=== PATIENT | female | born 1940 | race Caucasian/White ===

== ENCOUNTER → 2016-04-30 | Outpatient (CLI) | payer BC ==
[~2016-04-30] MED LIST: AMIT25TA19 PO; ASPCH81X PO; DIPH-437 PO; DOCU1TAB6 PO; MAGN400T5 PO; MULT-506 PO; MULT-663 PO; PSYL58.69 PO
== END | disposition home or self-care (01) ==
LOC: C.RDSM 13:44
PROVIDERS: ATTEND Physical Medicine & Rehabilitation Sports Medicine
DX: M25.551 Pain in right hip (principal); M25.552 Pain in left hip

== ENCOUNTER → 2016-05-18 | Outpatient (CLI) | payer BC ==
[2016-05-18 11:18] LABS: BLOOD UREA NITROGEN 18 mg/dl (7-18); CARBON DIOXIDE 31 mmol/L (21-32); CHLORIDE 105 mmol/L (98-107); GLUCOSE 89 mg/dl (70-99); POTASSIUM 4.4 mmol/L (3.5-5.1); SODIUM 143 mmol/L (136-145)
[2016-05-18 11:28] LABS: ALB/GLOB RATIO 1.1 (0.9-2); ALKALINE PHOSPHATASE 90 U/L (45-117); ALT/SGPT 33 U/L (12-78); AST/SGOT 26 U/L (15-37); BUN/CREATININE RATIO 23.2 (10-20); CHOLESTEROL 234 mg/dl (0-200); CHOLESTEROL/HDL RATIO 2.6; CREATININE 0.78 mg/dl (0.60-1.20); HDL CHOLESTEROL 90 mg/dl; LDL CHOLESTEROL CALCULATED 124 mg/dl; TRIGLYCERIDES 101 mg/dl (0-150); VERY LOW DENSITY LIPOPROT CALC 20 mg/dl
--- NOTE | 2016-05-22 10:51 | CODING QUERY MEDICAL NECESSITY ---
SUPPORTING DIAGNOSIS NEEDED A supporting diagnosis is required for the test/procedure performed on this patient in order for us to be reimbursed by the patient's insurance. Please provide a supporting diagnosis for the following test/procedure listed below next to the test name along with your signature. *If there is no additional diagnosis for this patient that would support the following test/procedure please document that below next to the test/procedure. Test(s)/Procedure(s) that require a supporting diagnosis: * VITAMIN D 25-HYDROXY DIAGNOSIS: * DOS: 05/18/16 Provider Signature: Date: Thank you Vivien Gerardo Health Information Management Once completed, please kindly fax back to [phone] For questions please call [phone]
== END | disposition home or self-care (01) ==
LOC: C.LABBC 07:34
PROVIDERS: ATTEND Family Medicine
DX: R03.0 Elevated blood-pressure reading, without diagnosis of hypertension (principal); E78.5 Hyperlipidemia, unspecified; M85.80 Other specified disorders of bone density and structure, unspecified site

== ENCOUNTER → 2016-10-03 | Outpatient (CLI) | payer BC ==
--- NOTE | 2016-10-03 11:48 | DIAGNOSTIC IMAGING REPORT ---
LEFT KNEE RADIOGRAPHS WITH COMPARISON STANDING AP RADIOGRAPHS OF THE RIGHT KNEE CLINICAL HISTORY: Left knee pain and tightness. COMPARISON: None FINDINGS: Comparison standing AP radiograph the right knee demonstrates no significant abnormality. Alignment of the left knee is anatomic. No fracture or joint effusion is identified. Joint spaces are preserved. A few tiny calcific densities within the subcutaneous tissues superior to the patella are of no significance. IMPRESSION: No significant abnormality of the left knee. Electronically signed by: Denzel Sorto M.D. 10/03/2016 11:46 AM Dictated Date/Time: 10/03/2016 11:45 AM
== END | disposition home or self-care (01) ==
LOC: C.RDSM 11:11
PROVIDERS: ATTEND Physician Assistant
DX: M25.562 Pain in left knee (principal)

== ENCOUNTER → 2017-05-22 | Outpatient (CLI) | payer BC ==
[2017-05-22 11:17] LABS: BLOOD UREA NITROGEN 18 mg/dl (7-18); CALCIUM 9.2 mg/dl (8.5-10.1); CARBON DIOXIDE 32 mmol/L (21-32); CHOLESTEROL 207 mg/dl (0-200); CREATININE 0.81 mg/dl (0.60-1.20); GLUCOSE 90 mg/dl (70-99); POTASSIUM 4.2 mmol/L (3.5-5.1); SODIUM 139 mmol/L (136-145)
[2017-05-22 11:23] LABS: LDL CHOLESTEROL CALCULATED 117 mg/dl
== END ==
LOC: C.LABBC 07:21
PROVIDERS: ATTEND Family Medicine
DX: E78.5 Hyperlipidemia, unspecified (principal)

== ENCOUNTER → 2017-07-04 | Outpatient (CLI) | payer BC | END | disposition home or self-care (01) | LOC: C.MAMM 11:25 | PROVIDERS: ATTEND Family Medicine | DX: M85.851 Other specified disorders of bone density and structure, right thigh (principal) ==

== ENCOUNTER → 2017-10-24 | Outpatient (CLI) | payer BC ==
[~2017-10-24] MED LIST changes: -AMIT25TA19 PO; +AMT25 PO; -DIPH-437 PO; +PSYL58.611 PO; -PSYL58.69 PO
--- NOTE | 2017-10-24 13:44 | DIAGNOSTIC IMAGING REPORT ---
L WRIST MIN 3 VIEWS ROUTINE CLINICAL HISTORY: LEFT WRIST FX COMPARISON STUDY: Left wrist 10/06/2017. FINDINGS: Overlying cast material obscures fine bony detail. There is again noted a slightly impacted and comminuted fractures at distal left radius. This appears to demonstrate slight increased sclerosis suggestive of healing. Dorsal displacement of the fracture fragments appears to have progressed compared to the prior study. Diffuse soft tissue swelling. IMPRESSION: Overlying cast material obscures fine bony detail. There appears to be mild healing within the distal radius fracture. There is mild dorsal displacement of the fracture fragments which has progressed compared to the prior study. Electronically signed by: Kam Sarkar M.D. 10/24/2017 1:42 PM Dictated Date/Time: 10/24/2017 1:40 PM
== END | disposition home or self-care (01) ==
LOC: C.RDSM 12:55
PROVIDERS: ATTEND Physician Assistant
DX: S52.502D Unspecified fracture of the lower end of left radius, subsequent encounter for closed fracture with routine healing (principal); X58.XXXD Exposure to other specified factors, subsequent encounter

== ENCOUNTER → 2017-11-07 | Outpatient (CLI) | payer BC ==
--- NOTE | 2017-11-07 13:50 | DIAGNOSTIC IMAGING REPORT ---
LEFT WRIST 3 VIEWS HISTORY: LEFT WRIST PAIN COMPARISON: None. FINDINGS: Diffuse soft tissue swelling within the left wrist. Comminuted mildly impacted distal left radius fracture is again noted. Some of the fragments demonstrate mild dorsal displacement. This remains unchanged. There is progressive sclerosis and a small amount of callus formation at the fracture consistent with healing. No dislocation. IMPRESSION: Progressive healing within the distal left radius fracture. The alignment remains unchanged. Electronically signed by: Kam Sarkar M.D. 11/07/2017 1:49 PM Dictated Date/Time: 11/07/2017 1:47 PM
== END | disposition home or self-care (01) ==
LOC: C.RDSM 08:00
PROVIDERS: ATTEND Physician Assistant
DX: M25.532 Pain in left wrist (principal)

== ENCOUNTER → 2017-11-28 | Outpatient (CLI) | payer BC ==
--- NOTE | 2017-11-28 15:32 | DIAGNOSTIC IMAGING REPORT ---
LEFT WRIST 3 VIEWS CLINICAL HISTORY: Healing fracture. FINDINGS: 3 views of the left wrist are compared to study dated 11/07/2017. The skeletal structures are osteopenic. There is a healing impacted fracture of the distal radial metaphysis. There is an increasing band of sclerosis along the fracture margin as compared to previous. Small posteriorly distracted fragments are again noted. No new fracture is identified. Mild osteoarthritic change is seen at the first carpometacarpal joint. Mild soft tissue swelling around the wrist persists. IMPRESSION: Continued healing of a distal radial metaphyseal fracture as above. Alignment is unchanged. Electronically signed by: Foster Cade M.D. 11/28/2017 3:31 PM Dictated Date/Time: 11/28/2017 3:29 PM
== END | disposition home or self-care (01) ==
LOC: C.RDSM 13:34
PROVIDERS: ATTEND Physician Assistant
DX: S62.102D Fracture of unspecified carpal bone, left wrist, subsequent encounter for fracture with routine healing (principal); X58.XXXD Exposure to other specified factors, subsequent encounter

== ENCOUNTER 2023-07-06 12:41 | Inpatient (IN) ==
[2023-07-06] MEDS: SODIUM CHLORIDE 0.9% 500 ML IV ONE ×3 (13:12→16:47)
--- NOTE | 2023-07-06 13:18 | Emergency Department Note ---
Impression & Plan Colitis, Constipation, Acute dehydration, Tachycardia, Leukocytosis, Hypertension ED Provider Note NAME: ISABELLE HUNTER AGE: 83 SEX: F : 1940 ARRIVES VIA: Walk-In INFORMANT: [Patient] ED PROVIDER(S): [Foster Dyson MD] CHIEF COMPLAINT: DrDeangelo Referred HISTORY OF PRESENT ILLNESS: The patient is an 83-year-old female who had some vomiting and nausea last weekend, 6 days ago. This was short-lived. She has not had a bowel movement since. Yesterday, she tried using a suppository but it really did not have any result. She was concerned because she has not had a bowel movement in almost a week, she went to urgent care, they referred her to the ER with concerns for obstruction. The patient feels dehydrated. No abdominal pain, no rectal pressure, no urinary complaints. There has been no fever, cough or congestion. She does have a history of constipation and usually, oral meds work well, she thinks things have been thrown off by her vomiting last weekend. PMHx/PSHx/Social Hx: See Below PHYSICAL EXAM: GENERAL: Patient is in no acute distress. HEENT: No acute trauma, normocephalic atraumatic, mucous membranes dry, no nasal congestion. NECK: No stridor, no adenopathy, no meningismus, trachea is midline. LUNGS: Clear to auscultation bilaterally, no wheeze, no rhonchi, breath sounds equal. HEART: Tachycardic, regular rhythm, no murmurs. ABDOMEN: Soft, nontender, no peritonitis. No significant abdominal distention, no pain with palpation of the abdomen. EXTREMITIES: No cyanosis, full range of motion of all the joints without pain or difficulty. NEUROLOGIC: Oriented x 3, no acute motor or sensory deficits, no focal weakness. SKIN: No jaundice, no diaphoresis. DIFFERENTIAL DIAGNOSIS: Constipation, dehydration, electrolyte imbalance, bowel obstruction, UTI, among others. EMERGENCY DEPARTMENT PROCEDURES: MEDICAL DECISION MAKING: There is a mild leukocytosis, this certainly could be consistent with infection. There was a normal hemoglobin and platelet count. Potassium somewhat low at 3.2. No renal failure. No concerning liver enzyme elevation. The patient did not have any evidence for pancreatitis. Urinalysis did not show findings of infection. Abdominal and pelvis CT shows some colitis secondary to significant constipation. No abscess. There was no bowel obstruction. On exam, the patient was tachycardic and hypertensive. She was dehydrated. There was no peritonitis or fever. Patient received 1.5 L of IV saline. She was given IV Zofran, IV ceftriaxone. The patient did receive a soapsuds enema, she had no relief with the enema. A milk and molasses enema was then ordered. I believe the patient requires a hospital stay. She will require a bowel cleanout here in the hospital. Findings today are concerning for the start of a colitis from her significant constipation. A talked to the patient, I spoke with case management, the on-call hospitalist was consulted. With regard to the hypertension, she appears currently asymptomatic. The blood pressure can be followed. I suspect the tachycardia will improve with further hydration. Prior/Outside records/notes reviewed: None. Imaging/x-ray results per my interpretation: Chronic Medical/Social conditions affecting care: Advanced age Care/Management discussed with: Case management, the on-call hospitalist. Level of care consideration(s): After review of the information above and other included data: --I believe the patient requires escalation of care to admission DISPOSITION: Admission Past Med/Surg History Medical History Arthritis of right sacroiliac joint Spinal stenosis Diverticular disease HTN (hypertension) Osteoarthritis Sciatica Surgical History History of total right hip replacement History of surgery History of carpal tunnel surgery of left wrist History of trigger finger History of total left hip arthroplasty History of colonoscopy with polypectomy Family History Mother Dementia Father Cardiac disorder Denies family history of Ovarian cancer Prostate cancer Myocardial infarction Breast cancer Colorectal cancer Social History Smoking Status: Never smoker Second Hand Exposure: No; Do You Dip or Chew Tobacco: No; Hx Alcohol Use: Yes Alcohol type: hard liquor Alcohol Intake Frequency: 2-3 x/Week Hx Substance Use: No Preferred Language: Estonian Communication Ability: Effective Visual Impairment: No Limitations Hearing Ability: Normal Wired Sweatband Cutter Required: No Beliefs That Will Affect Care: None and Cheondoism Cheondoism Beliefs: EPISCOPALIAN marital status: / Current Living Situation: Alone current occupational status: retired How many Children do You have: 2 Feels Safe at Home: Yes Childhood Exposure to Second-Hand Smoke: No Diet: regular caffeine: Yes during the past year weight has: remained stable Dental Care, Regularly: Yes Physical Activity Frequency: 3-4 Times per Week Seatbelt Use: always Sunscreen Use: Yes Do you think of yourself as: straight/heterosexual Assistive Devices: Glasses Allergies Allergies Allergy/AdvReac Type Severity Reaction Status Date / Time No Known Allergies Allergy Verified 03/08/23 13:19 Home Meds Home Medications Medication Instructions Recorded Confirmed amoxicillin 500 mg capsule 2,000 mg PO UD PRN PRE DENTAL 03/19/18 07/06/23 magnesium oxide 800 mg PO HS 03/19/18 07/06/23 multivitamin (Multiple Vitamins 1 tab PO HS 03/19/18 07/06/23 tablet) psyllium husk 3.4 gram/5.4 gram 2 tsp PO HS 03/19/18 07/06/23 oral powder (Metamucil) docusate sodium 100 mg capsule 300 mg PO HS 01/07/19 07/06/23 (Colace) lisinopril 5 mg tablet 5 mg PO QAM 07/06/23 07/06/23 Previous Rx's Medication Instructions Recorded amitriptyline 10 mg tablet 10 mg PO HS lumbar canal stenosis 05/02/23 #90 tabs valacyclovir 1 gram tablet 2,000 mg (2 x 1 gram) PO UD PRN 07/05/23 Cold Sores #20 tabs Results & Data (ED) Vital Signs Vital Signs - 24 hr 07/06/23 12:41 07/06/23 12:45 Temperature 36.3 C L Temperature Source Temporal Artery Scan Pulse Rate 113 H Respiratory Rate 20 Respiratory Effort / Characteristics Non-Labored Respiratory Depth Normal Respiratory Pattern Regular Blood Pressure 176/101 H Blood Pressure Mean 126 Pulse Oximetry 97 Oxygen Delivery Method Room Air Sepsis Recent Fever Within 48 Hours No Sepsis New/Unexplained Change in Mental Status N/A Sepsis Action Taken by Nursing No Action Required Home Medications Current Medication List: was personally reviewed by me Laboratory Data Attestation: I reviewed the patient's lab results. 07/06/23 13:05 07/06/23 13:05 Lab Results 07/06/23 07/06/23 Range/Units 13:05 13:06 WBC 11.51 H (4.8-10.8) K/ul RBC 4.27 (4.20-5.40) M/uL Hgb 12.6 (12.0-16.0) g/dl Hct 38.6 (37.0-47.0) % MCV 90.4 (80.0-100.0) fL MCH 29.5 (25.0-34.0) pg MCHC 32.6 (32.0-36.0) g/dL RDW Std Deviation 45.3 (36.4-46.3) fL RDW Coeff of Porfirio 13.6 (11.5-14.5) % Plt Count 333 (130-400) K/uL MPV 9.5 (9.4-12.4) fL Immature Gran % (Auto) 0.4 % Neut % (Auto) 66.6 % Lymph % (Auto) 22.5 % [place] % (Auto) 10.1 % Eos % (Auto) 0.1 % Baso % (Auto) 0.3 % Neut # (Auto) 7.67 H (1.40-6.50) K/uL Lymph # (Auto) 2.59 (1.20-3.40) K/uL [place] # (Auto) 1.16 H (0.11-0.59) K/uL Eos # (Auto) 0.01 (0.00-0.50) K/uL Baso # (Auto) 0.03 (0.00-0.20) K/uL Immature Gran # (Auto) 0.05 (0.01-0.20) K/uL Sodium 138 (136-145) mmol/L Potassium 3.2 L (3.5-5.1) mmol/L Chloride 102 (98-107) mmol/L Carbon Dioxide 29 (21-32) mmol/L Anion Gap 7 (3-11) BUN 18 (6-23) mg/dl Creatinine 0.91 (0.6-1.2) mg/dl Est Cr Clr Drug Dosing 45.0 ml/min Est GFR ( Amer) 68.1 ml/min Est GFR (Non-Af Amer) 58.8 ml/min BUN/Creatinine Ratio 19.8 (10-20) Glucose 111 H (70-99(Fasting)) mg/dl Calcium 9.2 (8.6-10.3) mg/dl Magnesium 2.0 (1.7-2.4) mg/dl Total Bilirubin 0.6 (0.2-1.0) mg/dl AST 30 (13-39) U/L ALT 29 (7-52) U/L Alkaline Phosphatase 80 (34-104) U/L Total Protein 7.5 (6.0-8.3) gm/dl Albumin 4.1 (3.4-5.0) gm/dl Globulin 3.4 (2.5-4.0) gm/dl Albumin/Globulin Ratio 1.2 (0.9-2) Lipase 46 (11-82) U/L Urine Color Dark Yellow Urine Appearance Clear (Clear) Urine pH 5.5 (4.5-7.5) Ur Specific [place] 1.012 (1.000-1.030) Urine Protein Trace H (Negative) Urine Glucose (UA) Negative (Negative) Urine Ketones Negative (Negative) Urine Blood Negative (Negative) Urine Nitrite Negative (Negative) Urine Bilirubin Negative (Negative) Urine Urobilinogen Negative (Negative) Ur Leukocyte Esterase 1+ H (Negative) Urine WBC (Auto) 5-10 H (0-5) /hpf Urine RBC (Auto) 0-4 (0-4) /hpf U Hyaline Cast (Auto) 1-5 (0-5) /lpf U Epithel Cells (Auto) 10-20 H (0-5) /lpf Urine Bacteria (Auto) Negative (Negative) Administered Medications Discontinued Medications Sodium Chloride (Nss) 500 mls @ 999 mls/hr IV .Q31M ONE Stop: 07/06/23 13:31 Last Infusion: 07/06/23 13:49 Dose: Infused Documented By: Admin: 07/06/23 13:12 Dose: 999 mls/hr Documented By: MIKE Sodium Chloride (Nss) 500 mls @ 999 mls/hr IV .Q31M ONE Stop: 07/06/23 13:42 Last Infusion: 07/06/23 14:46 Dose: Infused Documented By: Admin: 07/06/23 13:30 Dose: 999 mls/hr Documented By: SHRUTHI Ioversol (Optiray 320 100ml) 89 ml IV ONCE ONE Stop: 07/06/23 14:54 Last Admin: 07/06/23 14:54 Dose: 89 ml Documented By: BOLIVAR Ondansetron HCl (Ondansetron Inj 2 Mg/Ml 2 Ml Vial) 4 mg IV NOW STA Stop: 07/06/23 13:02 Last Admin: 07/06/23 13:29 Dose: 4 mg Documented By: OAC Imaging Data Radiologist's Impression: Abdomen/Pelvis CT 07/06/23 13:01 CT SCAN OF THE ABDOMEN AND PELVIS WITH IV CONTRAST CLINICAL HISTORY: Generalized abdominal pain. COMPARISON STUDY: Pelvic radiograph dated 01/25/2022. TECHNIQUE: Following the IV administration of 89 cc of Optiray 320, CT scan of the abdomen and pelvis is performed from the lung bases to the proximal femora. Images are reviewed in the axial, sagittal, and coronal planes. IV contrast was administered without complication. A dose lowering technique was utilized adhering to the principles of ALARA. CT DOSE: 1160.81 mGy.cm FINDINGS: Lung bases: The heart is normal in size and without pericardial effusion. The coronary arteries are densely calcified. The lung bases are clear. Liver: The contrast-enhanced liver is normal in size, contour, and attenuation. There is no intrahepatic biliary ductal dilatation. The hepatic veins and portal veins are patent. Gallbladder: Unremarkable. Spleen: Normal in size and attenuation. Pancreas: Unremarkable. Adrenal glands: Unremarkable. Kidneys: The contrast enhanced kidneys are normal in size and without hydronephrosis. The kidneys enhance symmetrically. Abdominal vasculature: The abdominal aorta is normal in course and caliber. Bowel: There is rectosigmoid fecal retention. The rectal wall is mildly thickened and there is perirectal inflammation. There is also inflammatory change identified in the perianal soft tissues. No fluid collection is seen. There are scattered colonic diverticula without CT evidence of acute diverticulitis. No bowel obstruction is seen. [id number] fecal retention is noted throughout the colon. The appendix is well-visualized and normal. There is mild subcutaneous soft tissue infiltration along the gluteal crease. Peritoneum: There is no intraperitoneal free air or abdominal ascites. There is a fat-containing umbilical hernia. Lymphadenopathy: None. Pelvic viscera: Evaluation of the pelvis is degraded by streak artifact from bilateral hip arthroplasties. The bladder is distended but otherwise normal in appearance. The uterus and adnexa are normal as visualized. Skeletal structures: The skeletal structures are osteopenic. There is moderate lumbosacral spondylosis. No lytic or blastic lesions are seen. Bilateral hip arthroplasties are in place. IMPRESSION: 1. There is evidence of a nonspecific proctitis, which may be stercoral. Correlate clinically. 2. There is also inflammatory change of the perianal soft tissues, as well as along the inferior aspect of the gluteal crease. No fluid collection is seen to suggest abscess. This is likely part of the same process. Correlate with physical examination findings. 3. No bowel obstruction is seen. 4. Additional findings as above. ACT 112: Negative or not required by law. Electronically signed by: Foster Cade M.D. 07/06/2023 3:23 PM Discharge Plan Visit Data Chief Complaint: Abdominal Pain Stated Complaint: REF BY [facility] - ABDOMINAL PAIN ED Provider: Foster Dyson Discharge Problem: Colitis, Constipation, Acute dehydration, Tachycardia, Leukocytosis, Hypertension Patient Disposition: Admitted As Inpatient Condition: Fair Forms Stand Alone Forms: [facility] [employer] Prescriptions Prescriptions: No Action amitriptyline 10 mg tablet 10 mg PO HS Qty: 90 1RF valacyclovir 1 gram tablet 2,000 mg PO UD PRN (Reason: Cold Sores) Qty: 20 3RF Rx Instructions: 1 day only; take at first s/s of cold sore docusate sodium [Colace] 100 mg capsule 300 mg PO HS multivitamin [Multiple Vitamins] Tablet 1 tab PO HS amoxicillin 500 mg Capsule 2,000 mg PO UD PRN (Reason: PRE DENTAL) magnesium oxide 250 mg magnesium Tablet 800 mg PO HS Metamucil 3.4 gram/5.4 gram Powder 2 tsp PO HS lisinopril 5 mg tablet 5 mg PO QAM Rx Instructions: TAKE 1 TABLET BY MOUTH DAILY IN THE MORNING Referrals Referrals: Nichole Antony MD [Primary Care Provider] - Discharge Problem: Constipation Qualifiers: Constipation type: unspecified constipation type Qualified Code(s): K59.00 - Constipation, unspecified Leukocytosis Qualifiers: Leukocytosis type: unspecified Qualified Code(s): D72.829 - Elevated white blood cell count, unspecified Hypertension Qualifiers: Hypertension type: unspecified Qualified Code(s): I10 - Essential (primary) hypertension
[2023-07-06 13:28] LABS: Appearance Urine Clear (Clear); Bacteria Urine Automated Negative (Negative); Bilirubin Urine Negative (Negative); Blood Urine Negative (Negative); Color Urine Dark Yellow; Glucose Urine UA Negative (Negative); Ketones Urine Negative (Negative); Leukocyte Esterase Urine 1+ (Negative); Nitrite Urine Negative (Negative); Protein Urine Trace (Negative); RBC Urine Automated 0-4 /hpf (0-4); Specific Gravity Urine 1.012 (1.000-1.030); Urobilinogen Urine Negative (Negative); pH Urine 5.5 (4.5-7.5)
[2023-07-06] MEDS: ONDANSETRON INJ 2 MG/ML 2 ML VIAL IV STA (13:29)
[2023-07-06 13:46] LABS: Basophils # (auto) 0.03 K/uL (0.00-0.20); Basophils % (auto) 0.3 %; Eosinophils # (auto) 0.01 K/uL (0.00-0.50); Eosinophils % (auto) 0.1 %; Hematocrit (blood only) 38.6 % (37.0-47.0); Hemoglobin 12.6 g/dl (12.0-16.0); Immature Granulocytes # (auto) 0.05 K/uL (0.01-0.20); Immature Granulocytes % (auto) 0.4 %; Lymphocytes # (auto) 2.59 K/uL (1.20-3.40); Lymphocytes % (auto) 22.5 %; Mean Corpuscular Hemoglobin 29.5 pg (25.0-34.0); Mean Corpuscular Hgb Conc 32.6 g/dL (32.0-36.0); Mean Corpuscular Volume 90.4 fL (80.0-100.0); Mean Platelet Volume 9.5 fL (9.4-12.4); Monocytes # (auto) 1.16 K/uL (0.11-0.59); Monocytes % (auto) 10.1 %; Neutrophils # (auto) 7.67 K/uL (1.40-6.50); Neutrophils % (auto) 66.6 %; Platelet Count 333 K/uL (130-400); RDW Coefficient of Variation 13.6 % (11.5-14.5); RDW Standard Deviation 45.3 fL (36.4-46.3); Red Blood Count 4.27 M/uL (4.20-5.40); White Blood Count 11.51 K/ul (4.8-10.8)
[2023-07-06 14:01] LABS: Albumin Globulin Ratio 1.2 (0.9-2); Albumin Level 4.1 gm/dl (3.4-5.0); BUN Creatinine Ratio 19.8 (10-20); Bilirubin,Total 0.6 mg/dl (0.2-1.0); Calcium 9.2 mg/dl (8.6-10.3); Est GFR (African American) 68.1 ml/min; Est GFR (Non-African American) 58.8 ml/min; Globulin 3.4 gm/dl (2.5-4.0); Potassium 3.2 mmol/L (3.5-5.1); Total Protein 7.5 gm/dl (6.0-8.3)
[2023-07-06] MEDS: OPTIRAY 320 100ml IV ONE (14:54)
--- NOTE | 2023-07-06 15:25 | CT Scan Report ---
CT SCAN OF THE ABDOMEN AND PELVIS WITH IV CONTRAST CLINICAL HISTORY: Generalized abdominal pain. COMPARISON STUDY: Pelvic radiograph dated 01/25/2022. TECHNIQUE: Following the IV administration of 89 cc of Optiray 320, CT scan of the abdomen and pelvi s is performed from the lung bases to the proximal femora. Images are reviewed in the axial, sagittal , and coronal planes. IV contrast was administered without complication. A dose lowering technique wa s utilized adhering to the principles of ALARA. CT DOSE: 1160.81 mGy.cm FINDINGS: Lung bases: The heart is normal in size and without pericardial effusion. The coronary arteries are d ensely calcified. The lung bases are clear. Liver: The contrast-enhanced liver is normal in size, contour, and attenuation. There is no intrahepa tic biliary ductal dilatation. The hepatic veins and portal veins are patent. Gallbladder: Unremarkable. Spleen: Normal in size and attenuation. Pancreas: Unremarkable. Adrenal glands: Unremarkable. Kidneys: The contrast enhanced kidneys are normal in size and without hydronephrosis. The kidneys enh ance symmetrically. Abdominal vasculature: The abdominal aorta is normal in course and caliber. Bowel: There is rectosigmoid fecal retention. The rectal wall is mildly thickened and there is perire ctal inflammation. There is also inflammatory change identified in the perianal soft tissues. No flui d collection is seen. There are scattered colonic diverticula without CT evidence of acute diverticul itis. No bowel obstruction is seen. [id number] fecal retention is noted throughout the colon. T he appendix is well-visualized and normal. There is mild subcutaneous soft tissue infiltration along the gluteal crease. Peritoneum: There is no intraperitoneal free air or abdominal ascites. There is a fat-containing umbi lical hernia. Lymphadenopathy: None. Pelvic viscera: Evaluation of the pelvis is degraded by streak artifact from bilateral hip arthroplas ties. The bladder is distended but otherwise normal in appearance. The uterus and adnexa are normal a s visualized. Skeletal structures: The skeletal structures are osteopenic. There is moderate lumbosacral spondylosi s. No lytic or blastic lesions are seen. Bilateral hip arthroplasties are in place. IMPRESSION: 1. There is evidence of a nonspecific proctitis, which may be stercoral. Correlate clinically. 2. There is also inflammatory change of the perianal soft tissues, as well as along the inferior aspe ct of the gluteal crease. No fluid collection is seen to suggest abscess. This is likely part of the same process. Correlate with physical examination findings. 3. No bowel obstruction is seen. 4. Additional findings as above. ACT 112: Negative or not required by law. Electronically signed by: Foster Cade M.D. 07/06/2023 3:23 PM
--- NOTE | 2023-07-06 16:37 | History & Physical Report ---
Date of Service July 06, 2023 Assessment & Plan (1) Constipation: Plan: -Admit to med/tele -Currently stable and non-toxic appearing -Presented to the ED with 5 days of constipation -Started with a GI virus at the beginning of the week causing recurrent nausea and non-bloody emesis -Has been dehydrated, attempted glycerine enema at home without relief -CT of the abd/pelvis w/IV con today shows "nonspecific proctitis, which may be stercoral." -No sign of bowel obstruction or abscess on CT -Had a soap suds enema in the ED with only a small, hard BM prior to admission -Will receive a milk of molasses enema ordered by the ED shortly -Will start GoLytley with 8 oz q10min until 2 L are consumed or the rectal effluent is clear -Will continue TID soap suds enemas until patient is having consistent, soft BM's -PRN hemorrhoidal suppositories for hemorrhoidal pain in between enemas -Continue IV hydration with maintenance LR for a total of 2 bags -PRN tylenol for pain -Will consult general surgery to follow with possible stercoral colitis on CT -BL SCD's for DVT PPX -Clear liquid diet -AM CBC, CMP, mag, PT/INR (2) Colitis: Plan: -CT of the abd/pelvis w/IV con shows signs of colitis, possibly stercoral -No signs of obstruction or abscess -S/P one dose of Ceftriaxone in the ED -Will continue ceftriaxone and add Flagyl for anaerobic coverage -Follow general surgery consult (3) Hypertension: Plan: -Stable -Continue lisinopril (4) Hypokalemia: Plan: -Noted to be 3.2 today -Likely due to poor oral intake over the past week -Will give 3 bags of 10 meq IV KCL and 40 meq PO KCL on admission -Will start maintenance LR overnight -Mag is WNL -Monitor am electrolytes (5) Urinary retention: Plan: -Patient mentioned having increased difficulty urinating over the past 12 hours -CT of the abd/pelvis shows significant bladder distention -PVR ordered on admission shows approximately 800 cc of urine -Renal function is stable, no signs of hydronephrosis on CT -Likely due to her significant constipation -Spoke with nursing staff, will start with prn straight caths for PVR of 400 cc or greater -If patient requires more than 2 straight-caths then will place Waldron catheter Plan The patient was discussed with Dr. Prado at the time of the admission History of Present Illness Chief Complaint: Constipation Primary Care Provider: Nichole Antony MD Radha Fournier is an 83 year old female with a PMH significant for HTN and chronic constipation who presented to the [facility] ED on 07/06/23 with complaints of constipation. She was noted to be hypertensive at 176/101 and tachycardic at 113 but was otherwise stable. Labs were significant for a leukocytosis of 11 with neutrophil predominance of 7, potassium of 3.2, and UA without sings of infection. CT of the abd/pelvis w/IV con was read as "1. There is evidence of a nonspecific proctitis, which may be stercoral. Correlate clinically. 2. There is also inflammatory change of the perianal soft tissues, as well as along the inferior aspect of the gluteal crease. No fluid collection is seen to suggest abscess. This is likely part of the same process. Correlate with physical examination findings. 3. No bowel obstruction is seen. 4. Additional findings as above.". Prior to admission the patient was given a dose of ceftriaxone, 1L NSS, 4 mg IV zofran, and a soap suds enema with small BM after. We were asked to admit the patient due to ongoing constipation and concern for stercoral proctitis. At the time of the exam the patient was returning to bed from the bathroom in no acute distress. She states that she started to develop flu-like symptoms including nausea, non-bloody emesis, and poor PO intake on 06/30. Because of her symptoms she had little to eat or drink over the past week and was unable to take her normal bowel regimen. She has had ongoing constipation over the past week. She tried a glycerine enema last night without a bowel movement. Denies abdominal pain, fever, chills, chest pain, cough, SOB, dysuria, hematuria, melena, LE swelling, and recent trauma. Currently, pain from her hemorrhoids is severe and keeping her from being able to comfortably have a BM at this time. Sh charlene states that she had a very small, hard, BM after having the soap suds enema. She feels as though she is having to work harder to urinate over the past 12 hours. She is a full code and would want her Son to make medical decisions if she cannot make them herself. Please refer to Dr. Prado's attestation for any changes to the treatment plan Allergies Allergy/AdvReac Type Severity Reaction Status Date / Time No Known Allergies Allergy Verified 03/08/23 13:19 Home Medications Medication Instructions Recorded Confirmed Type amoxicillin 500 mg capsule 2,000 mg PO UD PRN PRE DENTAL 03/19/18 07/06/23 History magnesium oxide 800 mg PO HS 03/19/18 07/06/23 History multivitamin (Multiple Vitamins 1 tab PO HS 03/19/18 07/06/23 History tablet) psyllium husk 3.4 gram/5.4 gram 2 tsp PO HS 03/19/18 07/06/23 History oral powder (Metamucil) docusate sodium 100 mg capsule 300 mg PO HS 01/07/19 07/06/23 History (Colace) amitriptyline 10 mg tablet 10 mg PO HS lumbar canal stenosis 05/02/23 07/06/23 Rx #90 tabs valacyclovir 1 gram tablet 2,000 mg (2 x 1 gram) PO UD PRN 07/05/23 07/06/23 Rx Cold Sores #20 tabs lisinopril 5 mg tablet 5 mg PO QAM 07/06/23 07/06/23 History Past Med/Surg History Medical History Arthritis of right sacroiliac joint Spinal stenosis Diverticular disease HTN (hypertension) Osteoarthritis Sciatica Surgical History History of total right hip replacement History of surgery History of carpal tunnel surgery of left wrist History of trigger finger History of total left hip arthroplasty History of colonoscopy with polypectomy Family History Mother Dementia Father Cardiac disorder Denies family history of Ovarian cancer Prostate cancer Myocardial infarction Breast cancer Colorectal cancer Social History Smoking Status: Never smoker Second Hand Exposure: No; Do You Dip or Chew Tobacco: No; Hx Alcohol Use: Yes Alcohol type: hard liquor Alcohol Intake Frequency: 2-3 x/Week Hx Substance Use: No Preferred Language: Persian Communication Ability: Effective Visual Impairment: No Limitations Hearing Ability: Normal Telecine Operator Required: No Beliefs That Will Affect Care: None and Lutheran Lutheran Beliefs: RELIGION marital status: / Current Living Situation: Alone current occupational status: retired How many Children do You have: 2 Feels Safe at Home: Yes Childhood Exposure to Second-Hand Smoke: No Diet: regular caffeine: Yes during the past year weight has: remained stable Dental Care, Regularly: Yes Physical Activity Frequency: 3-4 Times per Week Seatbelt Use: always Sunscreen Use: Yes Do you think of yourself as: straight/heterosexual Assistive Devices: Glasses Physical Exam Physical Exam: Physical Exam: General: In no acute distress, stated age, well-nourished, non-toxic appearing HEENT: Normocephalic, atraumatic, no scleral icterus, pupils around round, symmetrical, and reactive to light, dry mucus membranes, trachea midline, no thyromegaly Chest/Pulm: No respiratory distress, symmetrical chest expansion, clear breath sounds throughout Cardiac: RRR, no murmurs noted Abdomen: Negative for ascites and bruising, moderate abdominal distention, hypoactive bowel sounds, soft, non-tender to percussion and palpation throughout Musculoskeletal: Symmetrical and without signs of acute trauma, upper and lower extremities with full ROM, no atrophy, spasticity, or flaccidity Extremities: Radial, dorsalis pedis, and posterior tibial pulses are intact and symmetrical, no edema noted in the BL LE's Skin: Warm, dry, no rashes , lesions, or scars noted Neuro: Alert and oriented to person, place, month, year, and president, no focal defects, no tremors noted Psych: No acute distress, calm and cooperative during the exam Results & Data Results & Data Vital Signs (Past 12 Hours) Vital Signs Temp Pulse Resp BP Pulse Ox O2 Del Method 07/06/23 12:45 36.3 C L 113 H 20 176/101 H 97 07/06/23 12:41 Room Air Laboratory Results Abnormal lab results 07/06/23 07/06/23 Range/Units 13:05 13:06 WBC 11.51 H (4.8-10.8) K/ul Neut # (Auto) 7.67 H (1.40-6.50) K/uL [place] # (Auto) 1.16 H (0.11-0.59) K/uL Potassium 3.2 L (3.5-5.1) mmol/L Glucose 111 H (70-99(Fasting)) mg/dl Urine Protein Trace H (Negative) Ur Leukocyte Esterase 1+ H (Negative) Urine WBC (Auto) 5-10 H (0-5) /hpf U Epithel Cells (Auto) 10-20 H (0-5) /lpf Diagnostic Findings Abdomen/Pelvis CT 07/06/23 13:01 CT SCAN OF THE ABDOMEN AND PELVIS WITH IV CONTRAST CLINICAL HISTORY: Generalized abdominal pain. COMPARISON STUDY: Pelvic radiograph dated 01/25/2022. TECHNIQUE: Following the IV administration of 89 cc of Optiray 320, CT scan of the abdomen and pelvis is performed from the lung bases to the proximal femora. Images are reviewed in the axial, sagittal, and coronal planes. IV contrast was administered without complication. A dose lowering technique was utilized adhering to the principles of ALARA. CT DOSE: 1160.81 mGy.cm FINDINGS: Lung bases: The heart is normal in size and without pericardial effusion. The coronary arteries are densely calcified. The lung bases are clear. Liver: The contrast-enhanced liver is normal in size, contour, and attenuation. There is no intrahepatic biliary ductal dilatation. The hepatic veins and portal veins are patent. Gallbladder: Unremarkable. Spleen: Normal in size and attenuation. Pancreas: Unremarkable. Adrenal glands: Unremarkable. Kidneys: The contrast enhanced kidneys are normal in size and without hydronephrosis. The kidneys enhance symmetrically. Abdominal vasculature: The abdominal aorta is normal in course and caliber. Bowel: There is rectosigmoid fecal retention. The rectal wall is mildly thickened and there is perirectal inflammation. There is also inflammatory change identified in the perianal soft tissues. No fluid collection is seen. There are scattered colonic diverticula without CT evidence of acute diverticulitis. No bowel obstruction is seen. Nzwz-[id number]-wapldzdr fecal retention is noted throughout the colon. The appendix is well-visualized and normal. There is mild subcutaneous soft tissue infiltration along the gluteal crease. Peritoneum: There is no intraperitoneal free air or abdominal ascites. There is a fat-containing umbilical hernia. Lymphadenopathy: None. Pelvic viscera: Evaluation of the pelvis is degraded by streak artifact from bilateral hip arthroplasties. The bladder is distended but otherwise normal in appearance. The uterus and adnexa are normal as visualized. Skeletal structures: The skeletal structures are osteopenic. There is moderate lumbosacral spondylosis. No lytic or blastic lesions are seen. Bilateral hip arthroplasties are in place. IMPRESSION: 1. There is evidence of a nonspecific proctitis, which may be stercoral. Correlate clinically. 2. There is also inflammatory change of the perianal soft tissues, as well as along the inferior aspect of the gluteal crease. No fluid collection is seen to suggest abscess. This is likely part of the same process. Correlate with physical examination findings. 3. No bowel obstruction is seen. 4. Additional findings as above. ACT 112: Negative or not required by law. Electronically signed by: Foster Cade M.D. 07/06/2023 3:23 PM ECG Additional Comments: Will obtain at the time of admission Code Status & VTE Plan Code Status Full code VTE Prophylaxis Plan VTE Prophylaxis will be ordered: Yes Supervising Physician Co-Signing Physician Notes Patient seen and examined, chart reviewed, case discussed with Pro Hatch PA-C and I agree with the assessment and plan as above except as otherwise noted Labs and images reviewed Mary is a 83-year-old female with past medical history of hypertension, chronic constipation who developed poor p.o. intake, nausea, nonbloody emesis over the past 5 days and has not been able to keep down on her normal regimen, food, or drink. At time of admitting assessment has no abdominal pain, fever, chills, or sweats. Minimal BM small and very hard and has had difficulty urinating. At bedside she has no abdominal discomfort, abdomen is softly distended with diminished but intact bowel sounds. Ankle dorsiflexion/plantarflexion and sensation is intact bilaterally, no lower extremity weakness or saddle anesthesia is present. CT w evidence of nonspecific proctitis? stercoral, inflammatory change of the perianal soft tissue without abscess, and she does have a new leukocytosis on admission. Antibiotic coverage was started in the ER with Rocephin, agree with addition of Flagyl for GI coverage. Potassium 3.2, repleted. Magnesium is normal. Enema and GoLytely prep ordered. Agree with assessment and management as above PG Care Time/CCT Total # of Minutes Spent Total Time Spent with Patient: Total time spent is greater than 50% in coordination of care (as documented) at patient's floor/unit and/or counseling patient: Coding [place] [address] INT INP/OBS CARE MIN Patient Type Established Medical Decision Making High Complexity Diagnoses Constipation K59.00 Constipation type: unspecified constipation type Colitis K52.9 Hypertension I10 Hypertension type: unspecified Hypokalemia E87.6 Urinary retention R33.9 (1) Constipation Constipation type: unspecified constipation type Qualified Code(s): K59.00 - Constipation, unspecified (3) Hypertension Hypertension type: unspecified Qualified Code(s): I10 - Essential (primary) hypertension
[2023-07-06] MEDS: cefTRIAXone SODIUM 2,000 MG/50 ML BAG IV STA (16:47)
[2023-07-06] MEDS: ACETAMINOPHEN 1,000 MG/100 ML VIAL IV STA (17:14)
[2023-07-06] MEDS: metroNIDAZOLE 500 MG/100 ML BAG IV STA (17:26)
--- OUTSIDE RECORDS SUMMARY | 2023-07-06 18:31 | External Medical Summary | Summary of Care ---
Author Name Unknown Organization [facility] Address [address] [place] [address] Phone [phone] Care Team Providers Care Landscape Architect Name Role Phone Nichole Antony MD Primary Care Provider Reason for Visit * Reason Comments Other Encounter Details Date Type Department Care Team (Latest Contact Info) Description 07/06/2023 1:15 PM EDT Convenient Care Visit [facility] [address] [place] [address] Estiven Manuel PA-C [address] [facility] [place] [address] Constipation, unspecified constipation type*; Fecal impaction (HCC) Allergies No known active allergiesdocumented as of this encounter (statuses as of 07/06/2023) Medications Medication Sig Dispensed Refills Start Date End Date Status ASPIRIN 81 MG PO TABS daily 0 Act romario AMITRIPTYLINE HCL 10 MG PO TABS 1 tab at night 0 Active MAGNESIUM 250 MG PO TABS 1 tab twice daily 0 Active METAMUCIL 28.3 % PO POWD as needed 0 Active MULTIVITAMINS PO CAPS 1 tab daily 0 Ac tive DOCUSATE SODIUM 100 MG PO CAPS 2 tabs daily 0 Active valACYclovir (VALTREX) 1000 MG TabletIndications:Her pes simplex virus (HSV) infection Take 2 pills by mouth twice daily x 1 day only at first sign of outbreak. 4 Tab 0 04/29/2019 Active Desonide 0.05 % External CreamIndications:Derm atitis APPLY TOPICALLY TO RASH ON THE NECK TWO TIMES DAILY NEEDED FOR FLARES AND ITCHING 15 g 1 12/28/2021 Active Lisinopril 5 MG Oral Tablet (Prinivil) Take 1 Tablet by mouth in the morning. In the morning.. 0 02/20/2022 Active documented as of this encounter (statuses as of 07/06/2023) Active Problems No known active problems documented as of this encounter (statuses as of 07/06/2023) Immunizations Name Administration Dates Next Due COVID-19 mRNA, LNP-s, No Pre serve, 2-Dose Series (Moderna) 06/06/2020,05/02/2020 documented as of this encounter Social History Tobacco Use Types Packs/Day Years Used Date Smoking Tobacco: Never Smokeless Tobacco: Never Alcohol Use Standard Drinks/Week Comments Yes 0 (1 standard drink = 0.6 oz pur e alcohol) Sex and Gender Information Value Date Recorded Sex Assigned at Not on file Gender Identity Not on file Sexual Orientation Not on file Job Start Date Occupation Industry Not on file Not on file Not on file documented as of this encounter Last Filed Vital Signs Vital Sign Reading Time Taken Comments Blood Pressure 138/80 07/06/2023 12:11 PM EDT Pulse 106 07/06/2023 12:11 PM EDT Temperature 36.8 C (98.3 F) 07/06/2023 12:11 PM E DT Respiratory Rate 18 07/06/2023 12:11 PM EDT Oxygen Saturation 100% 07/06/2023 12:11 PM EDT Inhaled Oxygen Concentration - - Weight 69.4 kg (153 lb) 07/06/2023 12:11 PM EDT Height 160 cm (5' 3") 07/06/2023 12:11 PM EDT Body Mass Index 27.1 07/06/2023 12:11 PM EDT documented in this encounter Progress Notes * Estiven Manuel PA-C - 07/06/2023 12:27 PM EDT Nursing Notes: Radha Rodríguez LPN 07/06/23 1214 Signed Radha Fournier is a 83 year old female who presents to walk-in clinic today complaining of no BM's since 06/29. States on 06/30 - she vomited and was not feeling well and not eating. Took Liquid glycerin yesterday. Takes metamucil daily and took last night along with stool softeners. She states she feels lousy. Also thinks now she has hemorrhoids from trying to push out stool. No abdominal pain - her daughter wanted her to come in so she did. Pt alone in room. Subjective Radha Fournier is a 83 year old female that presents for Other She reports that she had N/V about 5-6 days ago, which resolved after a day. She has not had a BM since 6 days ago. Constipation This is a new problem. The current episode started in the past 7 days. The problem is unchanged. Stool frequency: normally goes once a day. has not had a BM since Thursday 06/29. Associated symptoms include bloating and hemorrhoids (thinks she may have developed hemorrhoids with straining). Pertinent negatives include no abdominal pain, anorexia, back pain, diarrhea, difficulty urinating (but has been urinating less than normal), fecal incontinence, fever, flatus, hematochezia, melena, nausea, rectal pain, vomiting (resolved after 06/30) or weight loss. She has tried stool softeners (gylcerine suppositories, metamucil) for the symptoms. The treatment provided no relief. She feels weak, run down. Objective BP 138/80 | Pulse 106 | Temp 36.8 C (98.3 F) (Tympanic) | Resp 18 | Ht 1.6 m (5' 3") | Wt 69.4 kg (153 lb) | SpO2 100% | BMI 27.10 kg/m | BSA 1.76 m Body mass index is 27.1 kg/m. BP Readings from Last 3 Encounters: 07/06/23 138/80 08/07/17 140/76 Wt Readings from Last 3 Encounters: 07/06/23 69.4 kg (153 lb) 08/07/17 65.8 kg (145 lb) Physical Exam Vitals and nursing note reviewed. Constitutional: General: She is not in acute distress. Appearance: She is well-developed. She is not ill-appearing, toxic-appearing or diaphoretic. HENT: Head: Normocephalic and atraumatic. Eyes: Extraocular Movements: Extraocular movements intact. Neck: Vascular: No JVD. Trachea: No tracheal deviation. Cardiovascular: Rate and Rhythm: Normal rate and regular rhythm. Pulses: Radial pulses are 2+ on the right side and 2+ on the left side. Heart sounds: Normal heart sounds. No murmur heard. No friction rub. No gallop. Pulmonary: Effort: No accessory muscle usage. Breath sounds: No decreased breath sounds, wheezing, rhonchi or rales. Chest: Chest wall: No mass, deformity, tenderness or crepitus. Abdominal: General: Bowel sounds are normal. There is distension. Palpations: Abdomen is soft. There is no hepatomegaly or splenomegaly. Tenderness: There is no abdominal tenderness. There is no guarding or rebound. Negative signs include Francois's sign, Rovsing's sign and McBurney's sign. Musculoskeletal: General: Normal range of motion. Cervical back: Normal range of motion and neck supple. Right lower leg: No tenderness. No edema. Left lower leg: No tenderness. No edema. Skin: General: Skin is warm and dry. Capillary Refill: Capillary refill takes less than 2 seconds. Nails: There is no clubbing. Neurological: General: No focal deficit present. Mental Status: She is alert and oriented to person, place, and time. Psychiatric: Mood and Affect: Mood normal. Mood is not anxious. Behavior: Behavior normal. Behavior is not agitated. Assessment and plan 1. Constipation, unspecified constipation type 2. Fecal impaction (HCC) Suspect fecal impaction vs bowel obstruction Shared decision to do GW for labs/obst Xray vs right to ER. Pt will go to Er for further work-up and management Suspect may need fluids as well. Follow up To ER now. The above was discussed and understanding was expressed. Estiven Manuel PA-C documented in this encounter Nursing Notes * Radha Rodríguez LPN - 07/06/2023 12:07 PM EDT Radha Fournier is a 83 year old female who presents to walk-in clinic today complaining of no BM's since 06/29. States on 06/30 - she vomited and was not feeling well and not eating. Took Liquid glycerin yesterday. Takes metamucil daily and took last night along with stool softeners. She states she feels lousy. Also thinks now she has hemorrhoids from trying to push out stool. No abdominal pain - her daughter wanted her to come in so she did. Pt alone in room. documented in this encounter Plan of Treatment Upcoming Encounters Date Type Department Care Team (Late st Contact Info) Description 09/27/2023 12:40 PM EDT Office Visit Dermatology [facility] [place] [address] [place] [address] Inga Tejeda PA-C [address] [facility] [place] [phone] Health Maintenance Due Date Last Done Comments DXA Scan 1940 Depression Screening 1952 DTaP,Tdap,and Td Vaccines (1 - Tdap) 02/27/1960 Zoster Vaccines (2 of 3) 03/25/2010 01/28/2010 Pneumococcal Vaccine: 65+ Years (2 of 2 - PCV) 05/27/2016 05/27/2015 COVID-19 Vaccine (3 - 2022-2 4 season) 2022 06/06/2020, 05/02/2020 Influenza Vaccine (FLU shot) (#1) 2022 GARDASIL-HPV IMMUNIZATION SERIES Aged Out No longer eligible b ased on patient's age to complete this topic Hepatitis B Aged Out No longer eligi ble based on patient's age to complete this topic MENINGOCOCCAL (MENACTRA/MENVEO) Aged Out No longer eligible b ased on patient's age to complete this topic documented as of this encounter Medical Devices Not on filedocumented as of this encounter Visit Diagnoses Diagnosis Constipation, unspecified constipation type- Primary Fecal impaction (HCC) documented in this encounter Care Teams Landscape Architect Relationship Specialty Start Date End Date Nichole Antony MD [address] [place] [address] PCP - General Family Medicine 09/25/18 documented as of this encounter
[2023-07-06] MEDS: LAVAGE SOLUTION 4000ML PO SCH (18:41)
[2023-07-06] MEDS: PLASMA-LYTE A 1,000 ML IV SCH (18:44)
[2023-07-06] MEDS: POTASSIUM CHLORIDE / WTR 10 MEQ/100 ML PLCT IV SCH (21:50)
[2023-07-06] MEDS: POTASSIUM CHLORIDE CRTAB 20 MEQ TABCR PO STA (21:50)
[2023-07-06] MEDS: AMITRIPTYLINE HCL 10 MG TAB PO SCH (21:50)
--- NOTE | 2023-07-06 22:07 | Surgery Consultation ---
Date of Consultation July 06, 2023 Assessment & Plan (1) Constipation: Patient has been admitted on the hospital service. From surgery perspective we recommend proceeding as follows: At the present time the patient has a benign abdominal exam. 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 and she has been given GoLytely as noted above which will hopefully help patient with having a bowel movement The patient has been empirically placed on Rocephin and Flagyl which can continue As noted above the patient does not have a surgical abdomen at this time and hopefully with the GoLytely that has been ordered this will help resolve her constipation The patient is currently on a clear liquid diet and I would not advance her past this until she has meaningful bowel movement Additional recommendations be forthcoming based on her clinical course as it unfolds Addendum (1:00 AM) I was called by nursing staff the patient was on bedside commode trying to have a bowel movement. Patient notes that she does not really have much in the way of abdominal pain and she is having some liquid stool when trying to have a bowel movement. I performed a rectal exam at bedside and was able to palpate a mass of semisolid stool in the patient's rectum. Unfortunately, the stool was at a distance that was out of reach to successfully manually disimpact the patient. We will attempt additional measures such as enemas to stimulate patient from below in an attempt to have her have a bowel movement. Supervising Physician Co-Signing Physician Notes This case was discussed with surgical PA. I agree with the plan. History of Present Illness Reason for Consultation: Sterile coral colitis Attending Physician: Steffen Prado MD History of Present Illness This is an 83-year-old female who notes that she has had chronic constipation for several years. The patient says that she takes stool softeners and laxatives and she has done so for several years and can usually manage her constipation in this manner. She notes that she has had a colonoscopy, most recently about 3 years ago, and she does note that she did not have any difficulty with the prep at that time. She notes that she has been having issues with worsening constipation for approximately 4 to 5 days. She notes that she has not had a normal bowel movement in approximately 4 days. Because of her ongoing constipation she presented to the emergency department. She spec ifically denies any abdominal pain. She denies any nausea or vomiting. She denies any fevers, shakes, or chills. Since arrival to the hospital patient has had labs and imaging which independent reviewed. The patient had a CT scan of the abdomen pelvis that showed patient had findings concerning for nonspecific proctitis with the potential of sterile coral colitis. There was some inflammatory changes in the perianal soft tissues in the inferior aspect of the gluteal crease however there was no fluid collection suggestive of an abscess. There is no evidence of bowel obstruction. Labs include a CBC her white blood cell count was elevated 11.5. Hemoglobin, hematocrit, platelet count were normal. Chemistry profile showed sodium, BUN, and creatinine were normal. She did have hypokalemia with a potassium of 3.2. There is no elevation of her LFTs or lipase. Urinalysis showed 1+ leukocyte Estrace and 5-10 white blood cells per high-power field but no bacteria or nitrates. Since arrival to the emergency department the patient has received an enema and has been initiated on GoLytely. She notes that she has been able to utilize the restroom but only passing very small pieces of stool. She says she is passing a small amount of flatus. At the time my interview the patient was resting comfortably in bed and she was no distress. Allergies Allergy/AdvReac Type Severity Reaction Status Date / Time No Known Allergies Allergy Verified 03/08/23 13:19 Home Medications Medication Instructions Recorded Confirmed Type amoxicillin 500 mg capsule 2,000 mg PO UD PRN PRE DENTAL 03/19/18 07/06/23 History magnesium oxide 800 mg PO HS 03/19/18 07/06/23 History multivitamin (Multiple Vitamins 1 tab PO HS 03/19/18 07/06/23 History tablet) psyllium husk 3.4 gram/5.4 gram 2 tsp PO HS 03/19/18 07/06/23 History oral powder (Metamucil) docusate sodium 100 mg capsule 300 mg PO HS 01/07/19 07/06/23 History (Colace) amitriptyline 10 mg tablet 10 mg PO HS lumbar canal stenosis 05/02/23 07/06/23 Rx #90 tabs valacyclovir 1 gram tablet 2,000 mg (2 x 1 gram) PO UD PRN 07/05/23 07/06/23 Rx Cold Sores #20 tabs lisinopril 5 mg tablet 5 mg PO QAM 07/06/23 07/06/23 History Patient History Medical History Arthritis of right sacroiliac joint Spinal stenosis Diverticular disease HTN (hypertension) Osteoarthritis Sciatica Surgical History History of total right hip replacement History of surgery Dr. Angel mata History of carpal tunnel surgery of left wrist History of trigger finger Right History of total left hip arthroplasty History of colonoscopy with polypectomy Family History Mother Dementia Father Cardiac disorder Denies family history of Ovarian cancer Prostate cancer Myocardial infarction Breast cancer Colorectal cancer Social History Smoking Status: Never smoker Second Hand Exposure: No; Do You Dip or Chew Tobacco: No; Hx Alcohol Use: No Hx Substance Use: No Preferred Language: Nauruan Communication Ability: Effective Visual Impairment: No Limitations Hearing Ability: Normal Factory Helper Required: No Beliefs That Will Affect Care: None marital status: / Current Living Situation: Alone current occupational status: retired How many Children do You have: 2 Other Information That Helps Us Care for You: No Feels Safe at Home: Yes Childhood Exposure to Second-Hand Smoke: No Diet: regular caffeine: Yes during the past year weight has: remained stable Dental Care, Regularly: Yes Physical Activity Frequency: 3-4 Times per Week Seatbelt Use: always Sunscreen Use: Yes Do you think of yourself as: straight/heterosexual Assistive Devices: Glasses Review of Systems Constitutional: no fever and no chills Eyes: + corrective lenses Ear, Nose, Mouth, Throat: no hearing loss Respiratory: no cough and no dyspnea Cardiovascular: no chest pain Gastrointestinal: + constipation; no abdominal pain, no na usea and no vomiting Genitourinary: no dysuria Musculoskeletal: no back pain Integumentary: no rash Neurologic: no localized weakness Physical Exam Constitutional: WD/WN, vitals as above Eyes: Wears glasses ENMT: Ears: no hearing impairment and no external ear abnormality Mouth: no oropharynx abnormality Neck: trachea midline Respiratory: normal respiratory effort; no respiratory distress and no labored breathing Cardiovascular: Rate/Rhythm: regular rate and regular rhythm Gastrointestinal (Abdomen): Abdomen is soft but is mildly distended. There is minimal to no pain with palpation and there is no rebound tenderness or guarding. Musculoskeletal: No calf tenderness Skin: no rashes Neurologic: moves all extremities Psychiatric: A+Ox3, euthymic affect Results & Data Vital Signs (Past 12 Hours) Vital Signs Temp Pulse Pulse Resp BP BP Pulse Ox 07/06/23 18:46 36.6 C 91 H 16 150/83 H 96 07/06/23 16:41 88 22 146/84 H 95 07/06/23 12:45 36.3 C L 113 H 20 176/101 H 97 07/06/23 12:41 O2 Del Method 07/06/23 18:46 Room Air 07/06/23 16:41 Room Air 07/06/23 12:45 07/06/23 12:41 Room Air PG Care Time/CCT Total # of Minutes Spent Total Time Spent with Patient: Total time spent is greater than 50% in coordination of care (as documented) at patient's floor/unit and/or counseling patient: Coding Level of Care Code 60477 INT INP/OBS CARE 3/75MIN Diagnoses Constipation K59.00 Constipation type: unspecified constipation type (1) Constipation Constipation type: unspecified constipation type Qualified Code(s): K59.00 - Constipation, unspecified
--- NOTE | 2023-07-07 05:06 | Surgery Progress Note ---
Date of Service July 07, 2023 Assessment & Plan (1) Constipation: Plan: Patient has been admitted on the hospital service. From surgery perspective we recommend proceeding as follows: The patient's abdominal exam remains benign Continue bowel regimen as ordered by the medical service Continue empiric antibiotics in the form of Rocephin and Flagyl I discussed with the patient that sometimes with severe constipation patients may have an element of urinary retention and this will hopefully resolve once her bowel function continues to improve Admission and Anticipated Discharge Date Admission Date: July 06, 2023 Supervising Physician Co-Signing Physician Notes I seen and examined this patient. I agree with the above assessment. Patient has begun to have some bowel movement and feels improved with that. She does she suspects that there should be more movement. She says she has no abdominal pain at this time. Continue IV antibiotics. May have a low fiber diet now. May try a suppository to help with increasing stimulation bowel movements. Subjective Patient is resting comfortably in bed. Since my most recent encounter with the patient she notes that she has had a bowel movement and notes that her abdomen feels markedly improved. She denies abdominal pain. She denies any nausea or vomiting. I discussed with the RN and patient is able to void but did have approximately 500 cc of postvoid residual for which she is going to be straight cath. Physical Exam Gastrointestinal (Abdomen): Bowel sounds are present. Abdomen is soft with minimal distention. Her abdomen is less bloated than what was noted during prior exams. There is no pain with palpation. Results & Data Vital Signs (Past 12 Hours) Vital Signs Temp Pulse Pulse Resp BP BP Pulse Ox 07/07/23 00:02 98 H 07/06/23 23:55 07/06/23 23:16 36.7 C 91 H 16 148/78 H 97 07/06/23 18:46 36.6 C 91 H 16 150/83 H 96 O2 Del Method 07/07/23 00:02 07/06/23 23:55 Room Air 07/06/23 23:16 Room Air 07/06/23 18:46 Room Air PG Care Time/CCT Total # of Minutes Spent Total Time Spent with Patient: Total time spent is greater than 50% in coordination of care (as documented) at patient's floor/unit and/or counseling patient: Coding Level of Care Code 10295 SUB INP/OBS CARE 05/02MIN Diagnoses Constipation K59.00 Constipation type: unspecified constipation type (1) Constipation Constipation type: unspecified constipation type Qualified Code(s): K59.00 - Constipation, unspecified
[2023-07-07] MEDS: metroNIDAZOLE 500 MG/100 ML BAG IV SCH (05:08)
--- NOTE | 2023-07-07 07:32 | Hospitalist Progress Note ---
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, with molly anal tissue inflammation seen on CT - Rocephin/Flagyl continues -Presented to the ED with 5 days of constipation -attempted glycerine enema at home without relief soap suds enema in the ED with only a small, hard BM prior to admission - milk of molasses enema ordered by the ED will use miralax 34 gm q4 x 3 and glycerine suppository, give her a break overnight and resume in am if no results -PRN hemorrhoidal suppositories for hemorrhoidal pain in between enemas -consult general surgery to follow with possible stercoral colitis on CT -BL SCD's for DVT PPX - (2) Hypertension: Plan: -Chronic and Stable-Continue lisinopril (3) Hypokalemia: Plan: -replete with parenteral supplements (4) Urinary retention: Plan: -CT of the abd/pelvis shows significant bladder distention - prn straight caths for PVR of 400 cc or greater -If patient requires more than 2 straight-caths then will place Waldron catheter culture pending Plan lovneox for DVT prevention Admission and Anticipated Discharge Date Admission Date: July 06, 2023 Subjective pt was seen with daughter on video phone call all questions answered no significant bowel movement, no abdominal pain instructed on increased bowel regiment Physical Exam Physical Exam: awake and alert abd is with hypoactive bowel sounds, non tender focally Results & Data Results & Data Vital Signs (Past 12 Hours) Vital Signs Temp Pulse Pulse Resp BP Pulse Ox O2 Del Method 07/07/23 00:02 98 H 07/06/23 23:55 Room Air 07/06/23 23:16 98.1 F 91 H 16 148/78 H 97 Room Air Laboratory Results review cbc review chemistry PG Care Time/CCT Total # of Minutes Spent Total Time Spent with Patient: Total time spent is greater than 50% in coordination of care (as documented) at patient's floor/unit and/or counseling patient: Coding Level of Care Code 14058 SUB INP/OBS CARE 3/50MIN Diagnoses Constipation K59.00 Constipation type: unspecified constipation type Hypertension I10 Hypertension type: unspecified Hypokalemia E87.6 Urinary retention R33.9 (1) Constipation Constipation type: unspecified constipation type Qualified Code(s): K59.00 - Constipation, unspecified (2) Hypertension Hypertension type: unspecified Qualified Code(s): I10 - Essential (primary) hypertension
[2023-07-07 08:04] LABS: Basophils # (auto) 0.02 K/uL (0.00-0.20); Basophils % (auto) 0.2 %; Eosinophils # (auto) 0.01 K/uL (0.00-0.50); Eosinophils % (auto) 0.1 %; Hematocrit (blood only) 31.9 % (37.0-47.0); Hemoglobin 10.5 g/dl (12.0-16.0); Immature Granulocytes # (auto) 0.07 K/uL (0.01-0.20); Immature Granulocytes % (auto) 0.7 %; Lymphocytes # (auto) 2.17 K/uL (1.20-3.40); Lymphocytes % (auto) 21.3 %; Mean Corpuscular Hemoglobin 30.1 pg (25.0-34.0); Mean Corpuscular Hgb Conc 32.9 g/dL (32.0-36.0); Mean Corpuscular Volume 91.4 fL (80.0-100.0); Mean Platelet Volume 9.8 fL (9.4-12.4); Monocytes # (auto) 1.05 K/uL (0.11-0.59); Monocytes % (auto) 10.3 %; Neutrophils # (auto) 6.86 K/uL (1.40-6.50); Neutrophils % (auto) 67.4 %; Platelet Count 278 K/uL (130-400); RDW Coefficient of Variation 13.9 % (11.5-14.5); RDW Standard Deviation 46.6 fL (36.4-46.3); Red Blood Count 3.49 M/uL (4.20-5.40); White Blood Count 10.18 K/ul (4.8-10.8)
[2023-07-07 08:52] LABS: Albumin Globulin Ratio 1.3 (0.9-2); Albumin Level 3.3 gm/dl (3.4-5.0); BUN Creatinine Ratio 15.5 (10-20); Bilirubin,Total 0.3 mg/dl (0.2-1.0); Calcium 8.2 mg/dl (8.6-10.3); Creatinine Clr Calc Pharmacy 58.5 ml/min; Est GFR (African American) 91.9 ml/min; Est GFR (Non-African American) 79.3 ml/min; Globulin 2.6 gm/dl (2.5-4.0); Magnesium 1.9 mg/dl (1.7-2.4); Potassium 4.2 mmol/L (3.5-5.1); Total Protein 5.9 gm/dl (6.0-8.3)
[2023-07-07] MEDS: lisinopril 5 MG TAB PO SCH (09:57)
[2023-07-07] MEDS: ENOXAPARIN INJ 40 MG/0.4 ML SYR SQ SCH (09:58)
[2023-07-07] MEDS: POLYETHYLENE (MIRALAX) 17 GM PACK PO SCH (14:26)
[2023-07-07] MEDS: cefTRIAXone SODIUM 2,000 MG in DEXTROSE 5 % MINI-B 50 ML IV SCH (14:27)
[2023-07-07] MEDS ORDERED: bisacodyL 10 MG SUPP PR ONE (21:00)
--- NOTE | 2023-07-07 23:25 | CT Scan Report ---
Exam(s): CT ABDOMEN + PELVIS With Contrast Oral - High Density Amt: BARIUM EXAM: CT Abdomen and Pelvis With Intravenous Contrast CLINICAL HISTORY: Reason for exam: eval stercoral colitis. TECHNIQUE: Axial computed tomography images of the abdomen and pelvis with intravenous contrast. CTDI is 24.96 mGy and DLP is 1131.83 mGy-cm. Automated exposure control was utilized for the study. A dose lowering technique was utilized adhering to the principles of ALARA. CONTRAST: Patient received BARIUM of Oral - High Density contrast COMPARISON: 07/06/2023. FINDINGS: Lung bases: Mild bilateral lower lobe atelectasis. Heart: Unremarkable. No cardiomegaly. No significant pericardial effusion. Normal cardiac size with coronary artery calcifications. ABDOMEN: Liver: Unremarkable. No mass. Gallbladder and bile ducts: Fluid fluid density within the gallbladder with increased density along the dependent portion which may indicate sequela of vicarious excretion of contrast from previous exam. No calcified stones. No ductal dilation. Pancreas: Unremarkable. No mass. No ductal dilation. Spleen: Unremarkable. No splenomegaly. Adrenals: Unremarkable. No mass. Kidneys and ureters: Unremarkable. No solid mass. No hydronephrosis. Stomach and bowel: Diffuse thickening of the wall through the rectum, cannot exclude proctitis versus infiltrative process. There is minimal residual stranding through the distal sigmoid junction with rectum is consistent with mild residual inflammatory process. Remainder of the sigmoid and colon or normal. No obstruction. PELVIS: Appendix: Normal appendix . Bladder: Unremarkable. No mass. Reproductive: Unremarkable as visualized. ABDOMEN and PELVIS: Intraperitoneal space: Unremarkable. No free air. No significant fluid collection. Bones/joints: Bilateral hip prosthesis in place with beam hardening artifact partially obscuring the pelvic structures. Multilevel degenerative disease of the spine with vacuum phenomenon. No acute fracture. No dislocation. Soft tissues: Unremarkable. Vasculature: Atherosclerotic disease of aorta with tortuosity. No aneurysm. Lymph nodes: Unremarkable. No enlarged lymph nodes. IMPRESSION: 1. Proctitis versus infiltrative process, clinical correlation recommended. Remainder of the colon unremarkable. No acute appendicitis or bowel obstruction. 2. Unremarkable abdominal viscera. Electronically signed by: Meghan Lee MD 07/07/23 23:24 PM
[2023-07-08] MEDS: ANUSOL SUPP 1 EA PR PRN (09:46)
[2023-07-08 10:07] LABS: Basophils # (auto) 0.03 K/uL (0.00-0.20); Basophils % (auto) 0.4 %; Eosinophils # (auto) 0.25 K/uL (0.00-0.50); Eosinophils % (auto) 3.1 %; Hematocrit (blood only) 33.2 % (37.0-47.0); Hemoglobin 11.2 g/dl (12.0-16.0); Immature Granulocytes # (auto) 0.05 K/uL (0.01-0.20); Immature Granulocytes % (auto) 0.6 %; Lymphocytes # (auto) 2.26 K/uL (1.20-3.40); Lymphocytes % (auto) 28.4 %; Mean Corpuscular Hemoglobin 29.9 pg (25.0-34.0); Mean Corpuscular Hgb Conc 33.7 g/dL (32.0-36.0); Mean Corpuscular Volume 88.8 fL (80.0-100.0); Mean Platelet Volume 9.3 fL (9.4-12.4); Monocytes # (auto) 0.75 K/uL (0.11-0.59); Monocytes % (auto) 9.4 %; Neutrophils # (auto) 4.62 K/uL (1.40-6.50); Neutrophils % (auto) 58.1 %; Platelet Count 309 K/uL (130-400); RDW Coefficient of Variation 13.9 % (11.5-14.5); RDW Standard Deviation 45.2 fL (36.4-46.3); Red Blood Count 3.74 M/uL (4.20-5.40); White Blood Count 7.96 K/ul (4.8-10.8)
[2023-07-08 10:41] LABS: Albumin Globulin Ratio 1.3 (0.9-2); Albumin Level 3.4 gm/dl (3.4-5.0); BUN Creatinine Ratio 9.6 (10-20); Bilirubin,Total 0.4 mg/dl (0.2-1.0); Calcium 8.8 mg/dl (8.6-10.3); Creatinine Clr Calc Pharmacy 56.8 ml/min; Est GFR (African American) 88.9 ml/min; Est GFR (Non-African American) 76.7 ml/min; Globulin 2.6 gm/dl (2.5-4.0); Magnesium 1.8 mg/dl (1.7-2.4); Potassium 3.6 mmol/L (3.5-5.1)
--- NOTE | 2023-07-08 14:14 | Surgery Progress Note ---
Date of Service July 08, 2023 Assessment & Plan (1) Colitis: (2) Leukocytosis: Plan Leukocytosis has remained to resolve for the past 2 days. The patient is hemodynamically stable and started tolerating a low fiber diet yesterday. She states she also has had more volume BMs. She says she has seen Dr. Torres in the past and had her last colonoscopy with him which was maybe 10 years ago. Recommend she follow-up with Dr. Torres for colonoscopy somewhere around 2 months from now. Complete a full course of antibiotics may be on oral antibiotics at home. Discharge per medicine when medically appropriate. Admission and Anticipated Discharge Date Admission Date: July 06, 2023 Subjective Patient states that she continues to feel well and having good amounts of bowel movement. She has no nausea or vomiting, no abdominal pain. Physical Exam Constitutional: healthy appearing; not ill appearing, not in distress and not diaphoretic Respiratory: normal respiratory effort; no respiratory distress, no labored breathing and does not use accessory muscles Cardiovascular: Rate/Rhythm: regular rate; not tachycardic Gastrointestinal (Abdomen): Nondistended Soft Nontender Results & Data Vital Signs (Past 12 Hours) Vital Signs Temp Pulse Pulse Resp BP BP Pulse Ox 07/08/23 12:03 36.7 C 89 17 146/83 H 96 07/08/23 08:29 36.8 C 101 H 18 153/92 H 94 07/08/23 07:52 86 07/08/23 03:14 36.3 C L 77 18 123/69 93 O2 Del Method 07/08/23 12:03 Room Air 07/08/23 08:29 Room Air 07/08/23 07:52 07/08/23 03:14 Room Air PG Care Time/CCT Total # of Minutes Spent Total Time Spent with Patient: Total time spent is greater than 50% in coordination of care (as documented) at patient's floor/unit and/or counseling patient: Coding Level of Care Code 86894 SUB INP/OBS CARE 05/02MIN Diagnoses Colitis K52.9 Leukocytosis D72.829 Leukocytosis type: unspecified (2) Leukocytosis Leukocytosis type: unspecified Qualified Code(s): D72.829 - Elevated white blood cell count, unspecified
--- NOTE | 2023-07-08 17:16 | Hospitalist Progress Note ---
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, with molly anal tissue inflammation seen on CT - Rocephin/Flagyl continues -Presented to the ED with 5 days of constipation -attempted glycerine enema at home without relief soap suds enema in the ED with only a small, hard BM prior to admission - milk of molasses enema ordered by the ED bowel cleared out with miralax did not need additional suppository, no pain except for hemorrhoids, will advance diet -PRN hemorrhoidal suppositories for hemorrhoidal pain -consult general surgery follwoing with stercoral colitis on CT continue antibiotics -BL SCD's for DVT PPX - (2) Hypertension: Plan: -Chronic and Stable-Continue lisinopril (3) Hypokalemia: Plan: -replete with parenteral supplements (4) Urinary retention: Plan: -CT of the abd/pelvis shows significant bladder distention -urinary issues resolved with constipation Plan lovneox for DVT prevention Admission and Anticipated Discharge Date Admission Date: July 06, 2023 Subjective Patient states that she continues to feel well and having good amounts of bowel movement. CT shows she has cleared bowel, she still has proctocolitis She has no nausea or vomiting, no abdominal pain. Physical Exam Physical Exam: awake and alert abd is with more normal active bowel sounds, non tender focally Results & Data Results & Data Vital Signs (Past 12 Hours) Vital Signs Temp Pulse Pulse Resp BP Pulse Ox O2 Del Method 07/08/23 15:59 98.6 F 96 H 18 149/83 H 97 Room Air 07/08/23 15:03 104 H 07/08/23 12:03 98.1 F 89 17 146/83 H 96 Room Air 07/08/23 08:29 98.2 F 101 H 18 153/92 H 94 Room Air 07/08/23 07:52 86 Laboratory Results reviewed cbc reviewed chemistry PG Care Time/CCT Total # of Minutes Spent Total Time Spent with Patient: Total time spent is greater than 50% in coordination of care (as documented) at patient's floor/unit and/or counseling patient: Coding Level of Care Code 08146 SUB INP/OBS CARE 2/35MIN Diagnoses Constipation K59.00 Constipation type: unspecified constipation type Hypertension I10 Hypertension type: unspecified Hypokalemia E87.6 Urinary retention R33.9 (1) Constipation Constipation type: unspecified constipation type Qualified Code(s): K59.00 - Constipation, unspecified (2) Hypertension Hypertension type: unspecified Qualified Code(s): I10 - Essential (primary) hypertension
[2023-07-09 07:39] LABS: Basophils # (auto) 0.03 K/uL (0.00-0.20); Basophils % (auto) 0.4 %; Eosinophils # (auto) 0.25 K/uL (0.00-0.50); Eosinophils % (auto) 3.4 %; Hematocrit (blood only) 34.5 % (37.0-47.0); Hemoglobin 11.7 g/dl (12.0-16.0); Immature Granulocytes # (auto) 0.03 K/uL (0.01-0.20); Immature Granulocytes % (auto) 0.4 %; Lymphocytes # (auto) 2.13 K/uL (1.20-3.40); Lymphocytes % (auto) 28.6 %; Mean Corpuscular Hemoglobin 29.8 pg (25.0-34.0); Mean Corpuscular Hgb Conc 33.9 g/dL (32.0-36.0); Mean Corpuscular Volume 87.8 fL (80.0-100.0); Mean Platelet Volume 9.5 fL (9.4-12.4); Monocytes # (auto) 0.83 K/uL (0.11-0.59); Monocytes % (auto) 11.2 %; Neutrophils # (auto) 4.17 K/uL (1.40-6.50); Platelet Count 375 K/uL (130-400); RDW Coefficient of Variation 13.6 % (11.5-14.5); RDW Standard Deviation 43.9 fL (36.4-46.3); Red Blood Count 3.93 M/uL (4.20-5.40); White Blood Count 7.44 K/ul (4.8-10.8)
[2023-07-09 08:34] LABS: Albumin Level 3.4 gm/dl (3.4-5.0); Bilirubin,Total 0.3 mg/dl (0.2-1.0); Calcium 8.8 mg/dl (8.6-10.3); Magnesium 1.8 mg/dl (1.7-2.4); Potassium 3.8 mmol/L (3.5-5.1)
[2023-07-09 08:40] LABS: Albumin Globulin Ratio 1.2 (0.9-2); BUN Creatinine Ratio 15.6 (10-20); Creatinine Clr Calc Pharmacy 53.7 ml/min; Est GFR (African American) 83.3 ml/min; Est GFR (Non-African American) 71.9 ml/min; Globulin 2.8 gm/dl (2.5-4.0); Total Protein 6.2 gm/dl (6.0-8.3)
--- NOTE | 2023-07-09 16:13 | Discharge Summary ---
Date of Service July 09, 2023 Admission HPI Per Admitting Provider Radha Fournier is an 83 year old female with a PMH significant for HTN and chronic constipation who presented to the [facility] ED on 07/06/23 with complaints of constipation. She was noted to be hypertensive at 176/101 and tachycardic at 113 but was otherwise stable. Labs were significant for a leukocytosis of 11 with neutrophil predominance of 7, potassium of 3.2, and UA without sings of infection. CT of the abd/pelvis w/IV con was read as "1. There is evidence of a nonspecific proctitis, which may be stercoral. Correlate clinically. 2. There is also inflammatory change of the perianal soft tissues, as well as along the inferior aspect of the gluteal crease. No fluid collection is seen to suggest abscess. This is likely part of the same process. Correlate with physical examination findings. 3. No bowel obstruction is seen. 4. Additional findings as above.". Prior to admission the patient was given a dose of ceftriaxone, 1L NSS, 4 mg IV zofran, and a soap suds enema with small BM after. We were asked to adm it the patient due to ongoing constipation and concern for stercoral proctitis. At the time of the exam the patient was returning to bed from the bathroom in no acute distress. She states that she started to develop flu-like symptoms including nausea, non-bloody emesis, and poor PO intake on 06/30. Because of her symptoms she had little to eat or drink over the past week and was unable to take her normal bowel regimen. She has had ongoing constipation over the past week. She tried a glycerine enema last night without a bowel movement. Denies abdominal pain, fever, chills, chest pain, cough, SOB, dysuria, hematuria, melena, LE swelling, and recent trauma. Currently, pain from her hemorrhoids is severe and keeping her from being able to comfortably have a BM at this time. She states that she had a very small, hard, BM after having the soap suds enema. She feels as though she is having to work harder to urinate over the past 12 hours. She is a full code and would want her Son to make medical decisions if she cannot make them herself. Please refer to Dr. Prado's attestation for any changes to the treatment plan Principal Diagnosis stercoral colitis constipation resolved Discharge Exam abdomen is soft and non tender Discharge Data Allergies Allergy/AdvReac Type Severity Reaction Status Date / Time No Known Allergies Allergy Verified 03/08/23 13:19 Consultations 07/06/23 16:28 ED Decision to Admit Stat 07/06/23 16:48 Consult General Surgery Routine Ordered Studies Abdomen/Pelvis CT 07/06/23 13:01 CT SCAN OF THE ABDOMEN AND PELVIS WITH IV CONTRAST CLINICAL HISTORY: Generalized abdominal pain. COMPARISON STUDY: Pelvic radiograph dated 01/25/2022. TECHNIQUE: Following the IV administration of 89 cc of Optiray 320, CT scan of the abdomen and pelvis is performed from the lung bases to the proximal femora. Images are reviewed in the axial, sagittal, and coronal planes. IV contrast was administered without complication. A dose lowering technique was utilized adhering to the principles of ALARA. CT DOSE: 1160.81 mGy.cm FINDINGS: Lung bases: The heart is normal in size and without pericardial effusion. The coronary arteries are densely calcified. The lung bases are clear. Liver: The contrast-enhanced liver is normal in size, contour, and attenuation. There is no intrahepatic biliary ductal dilatation. The hepatic veins and portal veins are patent. Gallbladder: Unremarkable. Spleen: Normal in size and attenuation. Pancreas: Unremarkable. Adrenal glands: Unremarkable. Kidneys: The contrast enhanced kidneys are normal in size and without hydronephrosis. The kidneys enhance symmetrically. Abdominal vasculature: The abdominal aorta is normal in course and caliber. Bowel: There is rectosigmoid fecal retention. The rectal wall is mildly thickened and there is perirectal inflammation. There is also inflammatory change identified in the perianal soft tissues. No fluid collection is seen. There are scattered colonic diverticula without CT evidence of acute diverticulitis. No bowel obstruction is seen. [id number] fecal retention is noted throughout the colon. The appendix is well-visualized and normal. There is mild subcutaneous soft tissue infiltration along the gluteal crease. Peritoneum: There is no intraperitoneal free air or abdominal ascites. There is a fat-containing umbilical hernia. Lymphadenopathy: None. Pelvic viscera: Evaluation of the pelvis is degraded by streak artifact from bilateral hip arthroplasties. The bladder is distended but otherwise normal in appearance. The uterus and adnexa are normal as visualized. Skeletal structures: The skeletal structures are osteopenic. There is moderate lumbosacral spondylosis. No lytic or blastic lesions are seen. Bilateral hip arthroplasties are in place. IMPRESSION: 1. There is evidence of a nonspecific proctitis, which may be stercoral. Correlate clinically. 2. There is also inflammatory change of the perianal soft tissues, as well as along the inferior aspect of the gluteal crease. No fluid collection is seen to suggest abscess. This is likely part of the same process. Correlate with physical examination findings. 3. No bowel obstruction is seen. 4. Additional findings as above. ACT 112: Negative or not required by law. Electronically signed by: Foster Cade M.D. 07/06/2023 3:23 PM Abdomen/Pelvis CT 07/07/23 17:31 Exam(s): CT ABDOMEN + PELVIS With Contrast Oral - High Density Amt: BARIUM EXAM: CT Abdomen and Pelvis With Intravenous Contrast CLINICAL HISTORY: Reason for exam: eval stercoral colitis. TECHNIQUE: Axial computed tomography images of the abdomen and pelvis with intravenous contrast. CTDI is 24.96 mGy and DLP is 1131.83 mGy-cm. Automated exposure control was utilized for the study. A dose lowering technique was utilized adhering to the principles of ALARA. CONTRAST: Patient received BARIUM of Oral - High Density contrast COMPARISON: 07/06/2023. FINDINGS: Lung bases: Mild bilateral lower lobe atelectasis. Heart: Unremarkable. No cardiomegaly. No significant pericardial effusion. Normal cardiac size with coronary artery calcifications. ABDOMEN: Liver: Unremarkable. No mass. Gallbladder and bile ducts: Fluid fluid density within the gallbladder with increased density along the dependent portion which may indicate sequela of vicarious excretion of contrast from previous exam. No calcified stones. No ductal dilation. Pancreas: Unremarkable. No mass. No ductal dilation. Spleen: Unremarkable. No splenomegaly. Adrenals: Unremarkable. No mass. Kidneys and ureters: Unremarkable. No solid mass. No hydronephrosis. Stomach and bowel: Diffuse thickening of the wall through the rectum, cannot exclude proctitis versus infiltrative process. There is minimal residual stranding through the distal sigmoid junction with rectum is consistent with mild residual inflammatory process. Remainder of the sigmoid and colon or normal. No obstruction. PELVIS: Appendix: Normal appendix . Bladder: Unremarkable. No mass. Reproductive: Unremarkable as visualized. ABDOMEN and PELVIS: Intraperitoneal space: Unremarkable. No free air. No significant fluid collection. Bones/joints: Bilateral hip prosthesis in place with beam hardening artifact partially obscuring the pelvic structures. Multilevel degenerative disease of the spine with vacuum phenomenon. No acute fracture. No dislocation. Soft tissues: Unremarkable. Vasculature: Atherosclerotic disease of aorta with tortuosity. No aneurysm. Lymph nodes: Unremarkable. No enlarged lymph nodes. IMPRESSION: 1. Proctitis versus infiltrative process, clinical correlation recommended. Remainder of the colon unremarkable. No acute appendicitis or bowel obstruction. 2. Unremarkable abdominal viscera. Electronically signed by: Meghan Lee MD 07/07/23 23:24 PM Hospital Course (1) Constipation: -Concern for stercoral colitis, with molly anal tissue inflammation seen on CT - discharged on cipro and flagyl, will recommend follow up with GI medicine and consider colonoscopy if indicated bowel cleared out with miralax did not need additional suppository, no pain except for hemorrhoids, tolerated advancing diet -PRN hemorrhoidal suppositories for hemorrhoidal pain (2) Hypertension: -Chronic and Stable-Continue lisinopril (3) Hypokalemia: -replete with parenteral supplements (4) Urinary retention: -CT of the abd/pelvis shows significant bladder distention -urinary issues resolved with constipation Total Time Total Time Spent Total Time Spent (In Minutes): It required less than 30 minutes to prepare this patient for discharge. Discharge Plan Discharge Items Patient Disposition: Home - Self-Care Reason For Visit: CONSTIPATION, COLITIS Discharge Diagnosis: constipation colitis Condition on Discharge: Fair Activity: Resume your previous activity Non-emergency contact: Primary Care Provider and Religious Education Coordinator Call non-emergency contact if: your symptoms worsen Follow-up/Referrals: Nichole Antony MD [Primary Care Provider] - 07/16/23 3:00 pm Diet: Regular Addtl Attending Provider Instructions: you seem to have a good understanding on how to have good bowel habits, continue to use fiber, laxatives and stool softeners to have at least one good bowel movement a day follow up with your cost estimating manager to consider a repeat colonoscopy to assure any issues with coitis are resolved Pending Studies at Discharge: No Stand-Alone Forms: My [employer], Smoking Cessation Medications and DC Order Prescriptions: New ciprofloxacin HCl [Cipro] 500 mg tablet 500 mg PO BID Qty: 10 0RF metronidazole 500 mg tablet 500 mg PO BID Qty: 10 0RF hydrocortisone acetate [Anusol-HC] 25 mg Suppository 25 mg AR QID PRN (Reason: hemorrhoids) Qty: 12 3RF Continued amitriptyline 10 mg tablet 10 mg PO HS Qty: 90 1RF valacyclovir 1 gram tablet 2,000 mg PO UD PRN (Reason: Cold Sores) Qty: 20 3RF Rx Instructions: 1 day only; take at first s/s of cold sore docusate sodium [Colace] 100 mg capsule 300 mg PO HS multivitamin [Multiple Vitamins] Tablet 1 tab PO HS amoxicillin 500 mg Capsule 2,000 mg PO UD PRN (Reason: PRE DENTAL) magnesium oxide 250 mg magnesium Tablet 800 mg PO HS Metamucil 3.4 gram/5.4 gram Powder 2 tsp PO HS lisinopril 5 mg tablet 5 mg PO QAM Rx Instructions: TAKE 1 TABLET BY MOUTH DAILY IN THE MORNING Discharge Orders: Discharge Order (Routine); Ordered 07/09/23 Ordered By: Gagandeep Bright Admission Data Admit Date/Time: 07/06/23 16:38 Attending Provider: Gagandeep Bright Admit Provider: Steffen Prado Primary Care Provider: Nichole Antony Other Providers: Steffen Prado; Fei Johns Other Interventions: Discharge Summary Assessment (RN) Last Done: 07/09/23 12:15 Coding Level of Care Code 27490 IN/OBS DISCH 30 MIN/LESS Diagnoses Constipation K59.00 Constipation type: unspecified constipation type Hypertension I10 Hypertension type: unspecified Hypokalemia E87.6 Urinary retention R33.9
== END 2023-07-09 14:51 | disposition home or self-care (01) | DRG 392 ==
LOC: SUATTDRO → ED 12:41 → SUATTDRO 16:38 → 2N 16:38